=== PATIENT | male | born 1995 | race Caucasian/White ===

== ENCOUNTER 2019-10-25 14:40 | Emergency (ER) | payer SELFPAY ==
[2019-10-25 15:19] LABS: APPEARANCE,URINE CLEAR; BILIRUBIN,URINE NEGATIVE (NEGATIVE); COLOR,URINE STRAW; GLUCOSE, URINE NEGATIVE (NEGATIVE); KETONES,URINE NEGATIVE (NEGATIVE); LEUKOCYTE ESTERASE,URINE NEGATIVE (NEGATIVE); NITRITE,URINE NEGATIVE (NEGATIVE); PROTEIN,URINE NEGATIVE (NEGATIVE); URINE SPECIFIC GRAVITY 1.005; UROBILINOGEN,URINE NEGATIVE mg/dL (<2.0)
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
[2019-10-25 15:35] LABS: URINE AMPHETAMINES SCREEN NEGATIVE; URINE BARBITURATES SCREEN NEGATIVE; URINE BENZODIAZEPINES SCREEN NEGATIVE; URINE COCAINE SCREEN NEGATIVE; URINE MARIJUANA (THC) SCREEN NEGATIVE; URINE METHADONE SCREEN NEGATIVE; URINE PHENCYCLIDINE SCREEN NEGATIVE
[2019-10-25 15:39] LABS: ABSOLUTE LYMPHOCYTES (AUTO) 0.7 10^3/uL (0.5-4.7); ABSOLUTE MONOCYTES (AUTO) 0.3 10^3/uL (0.1-1.4); ABSOLUTE NEUT (AUTO) 2.8 10^3/uL (1.7-8.2); BASOPHILS % (AUTO) 0.3 % (0-2); HEMATOCRIT 39.6 % (37.9-51.0); HEMOGLOBIN 13.5 g/dL (13.5-17.0); MEAN CORPUSCULAR HEMOGLOBIN 29.6 pg (27.0-33.4); MEAN CORPUSCULAR HGB CONC 34.1 g/dL (32.0-36.0); MEAN CORPUSCULAR VOLUME 87 fl (80-97); PLATELET COUNT 242 10^3/uL (150-450); RED BLOOD COUNT 4.57 10^6/uL (4.35-5.55); RED CELL DISTRIBUTION WIDTH 15.9 % (11.5-14.0); SEGMENTED NEUTROPHILS % (AUTO) 72.7 % (42-78); TOTAL CELLS COUNTED % (AUTO) 100 %; WHITE BLOOD COUNT 3.8 10^3/uL (4.0-10.5)
[2019-10-25 15:59] LABS: ALBUMIN 4.1 g/dL (3.5-5.0); ALKALINE PHOSPHATASE 75 U/L (38-126); ANION GAP 8 (5-19); ASPARTATE AMINO TRANSFERASE 38 U/L (17-59); BILIRUBIN,TOTAL 0.3 mg/dL (0.2-1.3); BLOOD UREA NITROGEN 4 mg/dL (7-20); CALCIUM 8.3 mg/dL (8.4-10.2); CARBON DIOXIDE 26 mmol/L (22-30); CHLORIDE 108 mmol/L (98-107); GLUCOSE 91 mg/dL (75-110); POTASSIUM 4.2 mmol/L (3.6-5.0); TOTAL PROTEIN 6.4 g/dL (6.3-8.2)
[2019-10-25 16:00] LABS: ACETAMINOPHEN < 10 ug/mL (10-30); SALICYLATE < 1.0 mg/dL (2.0-20.0)
[2019-10-25 16:08] LABS: ALCOHOL 407 mg/dL (NONE DETECTED)
[2019-10-25] MEDS ORDERED: KETAMINE HCL INJ 500 MG/10 ML VIAL IV ONE (17:18)
[2019-10-25] MEDS ORDERED: LORAZEPAM INJ 2 MG/1 ML VIAL IV ONE (18:34)
--- NOTE | 2019-10-25 19:33 | EKG REPORT ---
SEVERITY:- ABNORMAL ECG - SINUS TACHYCARDIA CONSIDER LEFT VENTRICULAR HYPERTROPHY : Confirmed by: Zeny Ruiz 25-Oct-2019 19:32:51
[2019-10-26 02:16] VITALS: BP 137/95
== END 2019-10-26 02:17 | disposition home or self-care (01) ==
LOC: ER 14:40
DX: F10.129 Alcohol abuse with intoxication, unspecified (principal); F15.10 Other stimulant abuse, uncomplicated; L98.9 Disorder of the skin and subcutaneous tissue, unspecified; R53.1 Weakness; R00.0 Tachycardia, unspecified
CPT/HCPCS: 93005; 99284; 96374; 96375; 36415; 80307 ×4; 85025; 80053; 81001; 93010; J3490; J2060

== ENCOUNTER 2019-11-05 16:09 | Emergency (ER) | payer SELFPAY ==
[2019-11-05 16:45] LABS: ABSOLUTE LYMPHOCYTES (AUTO) 0.7 10^3/uL (0.5-4.7); ABSOLUTE MONOCYTES (AUTO) 0.5 10^3/uL (0.1-1.4); ABSOLUTE NEUT (AUTO) 5.9 10^3/uL (1.7-8.2); BASOPHILS % (AUTO) 0.2 % (0-2); EOSINOPHILS % (AUTO) 0.3 % (0-6); HEMATOCRIT 46.3 % (37.9-51.0); HEMOGLOBIN 15.6 g/dL (13.5-17.0); LYMPHOCYTES % (AUTO) 9.6 % (13-45); MEAN CORPUSCULAR HEMOGLOBIN 29.4 pg (27.0-33.4); MEAN CORPUSCULAR HGB CONC 33.7 g/dL (32.0-36.0); MEAN CORPUSCULAR VOLUME 87 fl (80-97); MONOCYTES % (AUTO) 6.5 % (3-13); PLATELET COUNT 346 10^3/uL (150-450); RED BLOOD COUNT 5.31 10^6/uL (4.35-5.55); RED CELL DISTRIBUTION WIDTH 15.5 % (11.5-14.0); SEGMENTED NEUTROPHILS % (AUTO) 83.4 % (42-78); TOTAL CELLS COUNTED % (AUTO) 100 %; WHITE BLOOD COUNT 7.1 10^3/uL (4.0-10.5)
[2019-11-05] MEDS ORDERED: NORMAL SALINE 1000 ML 1,000 ML IV ONE ×2 (16:52→18:10)
[2019-11-05] MEDS ORDERED: ONDANSETRON HCL INJ/PF 4 MG/2 ML SDV IV ONE (16:53)
[2019-11-05 17:01] LABS: ALKALINE PHOSPHATASE 112 U/L (38-126); ANION GAP 11 (5-19); ASPARTATE AMINO TRANSFERASE 42 U/L (17-59); BILIRUBIN,DIRECT 0.2 mg/dL (0.0-0.4); BLOOD UREA NITROGEN 11 mg/dL (7-20); CALCIUM 10.3 mg/dL (8.4-10.2); CARBON DIOXIDE 29 mmol/L (22-30); CHLORIDE 101 mmol/L (98-107); GLUCOSE 136 mg/dL (75-110); POTASSIUM 5.6 mmol/L (3.6-5.0); TOTAL PROTEIN 8.2 g/dL (6.3-8.2)
[2019-11-05 17:11] LABS: APPEARANCE,URINE SLIGHTLY-CLOUDY; BILIRUBIN,URINE NEGATIVE (NEGATIVE); COLOR,URINE YELLOW; GLUCOSE, URINE NEGATIVE (NEGATIVE); KETONES,URINE 80 mg/dL (NEGATIVE); LEUKOCYTE ESTERASE,URINE NEGATIVE (NEGATIVE); NITRITE,URINE NEGATIVE (NEGATIVE); PROTEIN,URINE 100 mg/dL (NEGATIVE); URINE SPECIFIC GRAVITY 1.026; UROBILINOGEN,URINE NEGATIVE mg/dL (<2.0)
[2019-11-05] MEDS ORDERED: LORAZEPAM INJ 2 MG/1 ML VIAL IV ONE (17:18)
--- NOTE | 2019-11-05 17:23 | ER Document Report ---
ED General - General Chief Complaint: Alcohol Withdrawl Stated Complaint: WITHDRAWL Time Seen by Provider: 11/05/19 16:46 TRAVEL OUTSIDE OF THE [place] IN LAST 30 DAYS: No - unknown while dec sensorium - HPI Notes: Patient is a 23-year-old male with a longstanding history of alcohol abuse, run to the emergency department for evaluation by probation officers in law enforcement. Evidently the patient was brought into custody last night. He started having vomiting and shakiness today. They wanted him cleared by a physician prior to admitting him into the snf. The patient states he drinks anywhere from 5 to 7 days a week. He drinks beer, wine, "what ever is available." He denies use of any other drugs. He states he has been doing this for several years. He states he has woke in the morning and felt like he needs to have a drink, but he has no history of hallucinations, no history of seizure s. - Related Data Allergies/Adverse Reactions: No Known Allergies Allergy (Unverified 01/21/13 20:25) Home Medications: None Past Medical History - General Information source: Patient - Social History Smoking Status: Current Some Day Smoker Frequency of alcohol use: Heavy Drug Abuse: None Family History: None, Reviewed & Not Pertinent Patient has homicidal ideation: No Pulmonary Medical History: Reports: Other - History of pneumothorax Psychiatric Medical History: Reports: Hx Attention Deficit Hyperactivity Disorder Past Surgical History: Reports: Other - Tube thoracostomy - Immunizations Immunizations up to date: Yes Hx Diphtheria, Pertussis, Tetanus Vaccination: Yes Review of Systems - Review of Systems Constitutional: See HPI Neurological/Psychological: See HPI -: Yes All other systems reviewed and negative Physical Exam - Vital signs Vitals: Resp Pulse Ox 20 99 11/05/19 16:13 11/05/19 16:13 - Notes Notes: This is a 23-year-old male who appears his stated age. He is very anxious in appearance, but, cooperative with examiner, makes good eye contact. He does not appear to be reacting to internal stimuli. Fine tremor noted in his hands. Vital signs reviewed, please refer to chart. Head is normocephalic, atraumatic. Pupils equal round, reactive to light. Neck is supple without meningismus. Heart is regular rate and rhythm. Lungs are clear to auscultation bilaterally. Abdomen is soft, nontender, normoactive bowel sounds throughout. Extremities without cyanosis, clubbing. Posterior calves are nontender. Peripheral pulses are equal. Skin is warm and dry. Patient does have C-shaped wound on the right plantar aspect of the foot, overlying the calcaneus. There does appear to be some granules of sand embedded to the wounds, but it is superficial. Patient also has 3 ulcerative wounds to the forearm, radial aspect. They are healing with surrounding granulation tissue. No signs of secondary infection. Patient is awake, alert, neurological exam is nonfocal. Course - Re-evaluation Re-evalutation: 11/05/19 17:22 Patient presents to the emergency department for evaluation. He is here with vomiting, evaluation for alcohol withdrawal. Patient's heart rates in the 80s. His blood pressure is mildly elevated but only in the 140s over 90s. Awaiting laboratory investigations. He is given IV fluids, nausea medication. He is given a small dose of Ativan, this is more for his anxiety than any actual alcohol withdrawal. We will cleanse his wounds and dressed them appropriately. Anticipate discharge in 2 enforcement custody. 11/05/19 18:12 Patient's laboratory investigations reveal some mild hyperkalemia. He is given further IV fluids. I will go ahead and give him oral thiamine, folic acid, multivitamin. He is asking for p.o. fluids. He is feeling less nauseated. He appears less agitated. His CIWA is 12, I do not believe he will need additional medications. I will send him back into the custody of law enforcement. He is to return to the ED with worsening. - Vital Signs Vital signs: Temp Pulse Resp BP Pulse Ox 98.2 F 13 149/91 H 100 11/05/19 16:26 11/05/19 17:01 11/05/19 17:01 11/05/19 17:01 - Laboratory Result Diagrams: 11/05/19 16:20 11/05/19 16:20 Laboratory results interpreted by me: 11/05/19 11/05/19 11/05/19 16:20 16:20 16:51 RDW 15.5 H Lymph % (Auto) 9.6 L Seg Neutrophils % 83.4 H Potassium 5.6 H Glucose 136 H Calcium 10.3 H Urine Protein 100 H Urine Ketones 80 H - EKG Interpretation by Me Additional EKG results interpreted by me: 11/05/19 18:20 Sinus mechanism with a rate of 97 bpm. Normal axis and intervals. No acute ST changes concerning for ischemia or infarction. Discharge - Discharge Clinical Impression: Anxiety, Hyperkalemia Alcohol withdrawal Qualifiers: Complication of substance-induced condition: uncomplicated Qualified Code(s): F10.230 - Alcohol dependence with withdrawal, uncomplicated Nausea and vomiting Qualifiers: Vomiting type: unspecified Vomiting Intractability: non-intractable Qualified Code(s): R11.2 - Nausea with vomiting, unspecified Condition: Stable Disposition: HOME, SELF-CARE Instructions: Alcohol Withdrawl ([facility]), Nausea or Vomiting, Nonspecific ([facility]) Additional Instructions: Stay hydrated with small, frequent sips of fluids. Try to abstain from alcohol. There are alcohol treatment programs after you are out of police custody, feel free to seek them out regarding further treatment for your alcohol dependence. Return to the emergency department for worsening or new concerning symptoms of any sort.
[2019-11-05 17:35] LABS: URINE AMPHETAMINES SCREEN NEGATIVE; URINE BARBITURATES SCREEN NEGATIVE; URINE COCAINE SCREEN NEGATIVE; URINE MARIJUANA (THC) SCREEN NEGATIVE; URINE METHADONE SCREEN NEGATIVE; URINE PHENCYCLIDINE SCREEN NEGATIVE
[2019-11-05 17:46] LABS: URINE BENZODIAZEPINES SCREEN UNCONFIRMED POSITIVE
--- NOTE | 2019-11-05 18:09 | EKG REPORT ---
SEVERITY:- ABNORMAL ECG - SINUS RHYTHM CONSIDER LEFT VENTRICULAR HYPERTROPHY : Confirmed by: Jairo Russell MD 05-Nov-2019 18:09:17
[2019-11-05] MEDS ORDERED: FOLIC ACID 1 MG TABLET PO ONE (18:11)
[2019-11-05] MEDS ORDERED: MULTIVITAMIN TABLET PO ONE (18:11)
[2019-11-05] MEDS ORDERED: THIAMINE HCL 100 MG TABLET PO ONE (18:11)
[2019-11-05 18:49] VITALS: BP 150/86
== END 2019-11-05 18:55 | disposition home or self-care (01) ==
LOC: ER 16:09
DX: F10.230 Alcohol dependence with withdrawal, uncomplicated (principal); R41.9 Unspecified symptoms and signs involving cognitive functions and awareness; F41.9 Anxiety disorder, unspecified; R11.2 Nausea with vomiting, unspecified; E87.5 Hyperkalemia; F17.200 Nicotine dependence, unspecified, uncomplicated; L98.499 Non-pressure chronic ulcer of skin of other sites with unspecified severity
CPT/HCPCS: 93005; 99285; 96361; 96374; 96375; 36415; 80307 ×2; 85025; 80053; 81001; 93010; J2060; J2405; J7030